=== PATIENT | female | born 1970 | race Caucasian/White ===

== ENCOUNTER → 2022-01-11 09:16 | Outpatient (CLI) | payer BC, SELFPAY ==
[2022-01-11 19:58] LABS: Alanine Aminotransferase 18 IU/L (<35); Albumin 4.1 g/dL (3.5-5.0); Albumin Globulin Ratio 1.4 (1.0-2.8); Alkaline Phosphatase 80 U/L (38-126); Aspartate Aminotransferase 28 IU/L (14-36); BUN Creatinine Ratio 14.9 (6-22); Bilirubin Total 0.5 mg/dL (0.2-1.3); Blood Urea Nitrogen 11 mg/dL (7-17); Calcium 9.2 mg/dL (8.4-10.2); Carbon Dioxide 28 mmol/L (22-32); Chloride 104 mmol/L (98-107); Estimated Glomerular Filt Rate > 60 mL/min (>60); Globulin 2.9 g/dL (1.7-4.1); Glucose 96 mg/dL (70-100); HEMOLYSIS < 15 (0-50); Potassium 4.3 mmol/L (3.4-5.1); Sodium 138 mmol/L (137-145)
[2022-01-11 20:14] LABS: Hematocrit 35.8 % (36-46); Hemoglobin 12.5 g/dL (12.0-16.0); Mean Corpuscular HGB Conc 34.8 % (30-36); Mean Corpuscular Hemoglobin 31.7 PG (26-34); Mean Corpuscular Volume 91.1 fL (80-100); Platelet Count 288 X10^3/uL (150-400); Red Blood Cell Count 3.93 X10^6/uL (4.0-5.2); Red Cell Distribution Width 13.1 % (11.6-14.8); White Blood Cell Count 4.8 X10^3/uL (4.5-11.0)
[2022-01-11 20:27] LABS: Add Manual Diff / Slide Review YES
[2022-01-11 21:25] LABS: Neutrophils Absolute Manual 2352 /uL (3000-5900); Total Cells Counted 100
[2022-01-11 21:26] LABS: RBC Morphology Normal Morphology; Reactive Lymphocytes 1+
== END ==
PROVIDERS: PCP Physician Assistant; Visit Provider Physician Assistant
DX: D64.9 Anemia, unspecified (principal); N92.0 Excessive and frequent menstruation with regular cycle; R10.2 Pelvic and perineal pain
CPT/HCPCS: 80053; 85007; 85025

== ENCOUNTER 2022-01-16 13:59 | Emergency (ER) | payer BC, SELFPAY ==
[2022-01-16 14:24] VITALS: BP 165/96; PULSE 89; RESP 16; TEMP 37; O2SAT 98; BMI 33.0
[2022-01-16 17:24] LABS: Add Manual Diff / Slide Review NO; Basophils Absolute Auto 0 /uL (0-100); Basophils Percent Auto 0.4 % (0-2); Eosinophils Absolute Auto 100 /uL (0-450); Eosinophils Percent Auto 1.3 % (2-4); Hematocrit 32.7 % (36-46); Hemoglobin 11.4 g/dL (12.0-16.0); Lymphocytes Absolute Auto 2000 /uL (1100-4500); Mean Corpuscular HGB Conc 34.9 % (30-36); Mean Corpuscular Hemoglobin 31.9 PG (26-34); Mean Corpuscular Volume 91.4 fL (80-100); Monocytes Absolute Auto 800 /uL (0-900); Monocytes Percent Auto 8.2 % (3-14); Neutrophils Absolute Auto 6900 /uL (1500-7000); Neutrophils Percent Auto 70.1 % (50-75); Platelet Count 284 X10^3/uL (150-400); Red Blood Cell Count 3.58 X10^6/uL (4.0-5.2); Red Cell Distribution Width 13.1 % (11.6-14.8); White Blood Cell Count 9.8 X10^3/uL (4.5-11.0)
[2022-01-16 18:02] LABS: BUN Creatinine Ratio 15.5 (6-22); Blood Urea Nitrogen 11 mg/dL (7-17); Calcium 8.6 mg/dL (8.4-10.2); Carbon Dioxide 26 mmol/L (22-32); Chloride 106 mmol/L (98-107); Estimated Glomerular Filt Rate > 60 mL/min (>60); Glucose 94 mg/dL (70-100); HEMOLYSIS < 15 (0-50); Potassium 3.8 mmol/L (3.4-5.1); Sodium 140 mmol/L (137-145)
--- NOTE | 2022-01-16 18:15 | DI.US.S_ITS ---
PROCEDURE: US PELVIC COMPLETE INDICATIONS: vaginal bleeding. TECHNIQUE: Real-time scanning was performed of the pelvic organs, with image documentation. Additional endovaginal scanning was necessary due to incomplete visualization of the adnexal and endometrial structures by transabdominal scanning. COMPARISON: None. FINDINGS: The uterus measures 5.7 x 5.8 x 10.5 cm. No uterine mass. Endometrium measures 2.5 cm in double air thickness. Both ovaries normal in size and appearance. Anechoic cyst in the left ovary measuring 1.6 x 1.4 x 2.1 cm. No free pelvic fluid. IMPRESSION: Thickened appearance of the endometrium is consistent with menorrhagia. No uterine mass or other acute abnormality identified. We strive to produce accurate, complete, and clear reports of imaging services. To assist us in improving patient care, this report was composed using standard report templates and voice recognition software. Therefore, it may contain abnormal punctuation, insertions and/or omissions. Occasional wrong-word or sound-alike substitutions may occur. Though we review the report and make efforts to correct it, we do recommend that the report be read carefully in proper context to recognize any text inaccuracies. Dictated by: Edi Delatorre M.D. on 01/16/2022 at 20:08 Approved by: Edi Delatorre M.D. on 01/16/2022 at 20:09
--- NOTE | 2022-01-16 20:39 | ED.FEMALEGU ---
HPI - Female Genitourinary <Ronaldo Hilliard PA-C - Last Filed: 01/16/22 20:52> General Chief complaint: Vaginal Bleeding Stated complaint: Heavy menstrual bleeding- referred by Desirae Osorio Time Seen by Provider: 01/16/22 18:15 Source: patient Mode of arrival: Ambulatory History of Present Illness HPI Narrative: 51-year-old female with no reported significant past medical history presents to the ED with prolonged vaginal bleeding starting November 2021. Patient states she is perimenopausal, had abnormal vaginal bleeding starting November, when she had a period that lasted for 2 weeks, followed by stoppage for a week, followed by another period or 3 weeks. Since then the patient says that she has been bleeding on and off, describes the bleeding as moderate bleeding. Patient states that starting this morning, she started experiencing significant cramping along with increased bleeding. Patient does not have an established supervisory air intercept controller, however sees her PCP for her routine exams. Patient saw her PCP last week, who recommended ibuprofen to control the bleeding. Patient states that she has had moderate success with ibuprofen for a couple of days, but no success in the last 2 days. Patient denies fever, chills, chest pain, shortness of breath, nausea, vomiting, dysuria, lightheadedness, dizziness, syncope. Patient states she does not have any significant gynecological history. States that her periods were normal and regular up until 2 months ago. Related Data Previous Rx's Medication Instructions Recorded medroxyprogesterone 10 mg tablet 10 mg PO DAILY 10 Days tab 01/16/22 Allergies Allergy/AdvReac Type Severity Reaction Status Date / Time diphenhydramine Allergy Unknown Verified 01/10/22 08:19 Review of Systems <Ronaldo Hilliard PA-C - Last Filed: 01/16/22 20:52> Review of Systems ROS Unobtainable: All systems reviewed & are unremarkable except as noted in HPI and below Constitutional Constitutional: Denies chills, Denies fatigue, Denies fever(s), Denies frequent falls, Denies lethargy and Denies weakness Eyes Eyes: Denies change in vision, Denies eye discharge, Denies irritation and Denies loss of vision ENT Ears, Nose, Mouth, and Throat: Denies change in voice, Denies dizziness, Denies neck pain, Denies sore throat and Denies throat swelling Cardiovascular Cardiovascular: Denies chest pain, Denies irregular heart rhythm, Denies lightheadedness, Denies palpitations, Denies dyspnea, Denies dyspnea on exertion and Denies orthopnea Respiratory Respiratory: Denies cough, Denies dyspnea, Denies dyspnea on exertion and Denies wheezing Gastrointestinal Gastrointestinal: Denies abdominal pain, Denies change in bowel habits, Denies diarrhea, Denies nausea and Denies vomiting Genitourinary Genitourinary: Denies hematuria, Denies flank pain, Denies urinary incontinence and Denies urinary urgency Comments: Pelvic cramping, abnormal and prolonged vaginal bleeding Musculoskeletal Musculoskeletal: Denies back pain, Denies muscle weakness, Denies neck pain, Denies numbness and Denies tingling Integumentary/Breasts Skin/Breast: Denies pruritus, Denies erythema, Denies rash and Denies wounds Neurologic Neurologic: Denies behavioral changes, Denies confusion, Denies dizziness, Denies frequent falls, Denies loss of vision, Denies numbness, Denies tingling and Denies weakness Psychiatric Psychiatric: Denies anxiety, Denies behavioral changes, Denies confusion, Denies depression, Denies homicidal ideation and Denies suicidal ideation Endocrine Endocrine: Denies fatigue, Denies flushing and Denies palpitations Hematologic/Lymphatic Hematologic/Lymphatic: Denies easy bruising Allergic/Immunologic Allergic/Immunologic: Denies urticaria, Denies throat swelling and Denies wheezing Patient History <Ronaldo Hilliard PA-C - Last Filed: 01/16/22 20:52> Medical History Encounter for general adult medical examination without abnormal findings Encounter for gynecological examination (general) (routine) without abnormal findings Encounter for screening for malignant neoplasm of cervix Encounter for screening mammogram for malignant neoplasm of breast Family History Other Family history of diseases of the skin and subcutaneous tissue alcohol intake frequency: a few times a month Substance Use Type: does not use Exam <Ronaldo Hilliard PA-C - Last Filed: 01/16/22 20:52> Narrative Exam Narrative: Const General:?cooperative, healthy appearing and comfortable HENCO Head:?normal to inspection Ears:?hearing grossly normal bilaterally Nose:?external nose normal Face and sinus:?normal facial exam and sinuses nontender Mouth:?oral mucosae normal Throat:?posterior oropharynx normal Eyes General:?appearance normal, both eyes and all related structures Neck Neck:?normal visual inspection and no lymphadenopathy noted Resp Effort & Inspection:?normal respiratory effort Auscultation:?clear to auscultation bilaterally Cardio Rate:?regular rate Rhythm:?regular rhythm GI Abdomen is soft, nontender, nondistended. Neuro General:?patient alert, patient awake and patient oriented x3 Initial Vital Signs Initial Vital Signs: Vital Signs Temperature 98.6 F 01/16/22 14:24 Pulse Rate 89 01/16/22 14:24 Respiratory Rate 16 01/16/22 14:24 Blood Pressure 165/96 H 01/16/22 14:24 Pulse Oximetry 98 01/16/22 14:24 <Vaibhav Andino DO - Last Filed: 01/17/22 00:23> Initial Vital Signs Initial Vital Signs: Vital Signs Temperature 98.6 F 01/16/22 14:24 Pulse Rate 89 01/16/22 14:24 Respiratory Rate 16 01/16/22 14:24 Blood Pressure 165/96 H 01/16/22 14:24 Pulse Oximetry 98 01/16/22 14:24 Course <Ronaldo Hilliard PA-C - Last Filed: 01/16/22 20:52> Orders Ordered: ED Orders 01/16/22 17:16 Basic Metabolic Panel Stat Complete Blood Count AUTO DIFF Stat 01/16/22 18:15 US pelvic complete Stat Vital Signs Vital signs: Vital Signs - 8 hr 01/16/22 20:49 Pulse Rate 85 Respiratory Rate 16 Blood Pressure 125/76 Pulse Oximetry 97 <DO Mathieu Murcia Last Filed: 01/17/22 00:23> Orders Ordered: ED Orders 01/16/22 17:16 Basic Metabolic Panel Stat Complete Blood Count AUTO DIFF Stat 01/16/22 18:15 US pelvic complete Stat Vital Signs Vital signs: Vital Signs - 8 hr 01/16/22 20:49 Pulse Rate 85 Respiratory Rate 16 Blood Pressure 125/76 Pulse Oximetry 97 MDM - Female Genitourinary <FRANKY Dia Last Filed: 01/16/22 20:52> Lab Data Lab results narrative: Labs within normal limits. H&H stable. Result diagrams: 01/16/22 17:16 01/16/22 17:16 Labs: Lab Results 01/16/22 01/16/22 Range/Units 17:16 17:16 WBC 9.8 (4.5-11.0) X10^3/uL RBC 3.58 L (4.0-5.2) X10^6/uL Hgb 11.4 L (12.0-16.0) g/dL Hct 32.7 L (36-46) % MCV 91.4 (80-100) fL MCH 31.9 (26-34) PG MCHC 34.9 (30-36) % RDW 13.1 (11.6-14.8) % Plt Count 284 (150-400) X10^3/uL Neut % (Auto) 70.1 (50-75) % Lymph % (Auto) 20.0 L (25-40) % [place] % (Auto) 8.2 (3-14) % Eos % (Auto) 1.3 L (2-4) % Baso % (Auto) 0.4 (0-2) % Neut # (Auto) 6900 (3173-7135) /uL Lymph # (Auto) 2000 (0347-8914) /uL [place] # (Auto) 800 (0-900) /uL Eos # (Auto) 100 (0-450) /uL Baso # (Auto) 0 (0-100) /uL Sodium 140 (137-145) mmol/L Potassium 3.8 (3.4-5.1) mmol/L Chloride 106 (98-107) mmol/L Carbon Dioxide 26 (22-32) mmol/L BUN 11 (7-17) mg/dL Creatinine 0.71 (0.52-1.04) mg/dL Estimated GFR > 60 (>60) mL/min BUN/Creatinine Ratio 15.5 (6-22) Glucose 94 (70-100) mg/dL Calcium 8.6 (8.4-10.2) mg/dL Point of Care Testing Test Results Negative Urine Dip Bedside Urine Glucose Negative Bedside Urine Bilirubin - Negative Bedside Urine Ketone - Negative Urine Specific [place] 1.015 Bedside Urine Occult Blood +++ Bedside Urine pH 5.5 Bedside Urine Protein - Negative Bedside Urine Urobilinogen - Negative Bedside Urine Nitrite - Negative Bedside Urine Leukocytes - Negative Esterase Imaging Data US - DIRECTOR TREASURER: Radiologist's Impression: PROCEDURE:? US PELVIC COMPLETE ? INDICATIONS:? vaginal bleeding. ? TECHNIQUE:? Real-time scanning was performed of the pelvic organs, with image documentation.? Additional endovaginal scanning was necessary due to incomplete visualization of the adnexal and endometrial structures by transabdominal scanning.? ? COMPARISON:? None. ? FINDINGS:? ?? The uterus measures 5.7 x 5.8 x 10.5 cm.? No uterine mass.? Endometrium measures 2.5 cm in double air thickness. ? Both ovaries normal in size and appearance.? Anechoic cyst in the left ovary measuring 1.6 x 1.4 x 2.1 cm. ? No free pelvic fluid.? ? ? IMPRESSION:? Thickened appearance of the endometrium is consistent with menorrhagia.? No uterine mass or other acute abnormality identified. ? We strive to produce accurate, complete, and clear reports of imaging services. To assist us in improving patient care, this report was composed using standard report templates and voice recognition software. Therefore, it may contain abnormal punctuation, insertions and/or omissions. Occasional wrong-word or sound-alike substitutions may occur. Though we review the report and make efforts to correct it, we do recommend that the report be read carefully in proper context to recognize any text inaccuracies. ? ? Dictated by: Edi Delatorre M.D. on 01/16/2022 at 20:08 ? ? Approved by: Edi Delatorre M.D. on 01/16/2022 at 20:09 ? MDM Narrative Medical decision making narrative: 51-year-old female with no reported significant past medical history presents to the ED with prolonged vaginal bleeding starting November 2021. Concern for fibroids versus polyps versus malignancy versus hyperplasia versus perimenopausal DUB versus anemia vs vs miscarriage. Will obtain labs, Upreg, vaginal ultrasound. H&H stable, U preg negative. Vaginal ultrasound shows endometrial hyperplasia consistent with menorrhagia, anechoic ovarian cyst. We will start patient on medroxyprogesterone to contain the bleeding. Patient agrees to follow-up with supervisory air intercept controller Dr. Guerra as soon as possible. ED return precautions discussed with patient. Patient verbalized understanding. <Vaibhav Andino, - Last Filed: 01/17/22 00:23> Lab Data Labs: Lab Results 01/16/22 01/16/22 Range/Units 17:16 17:16 WBC 9.8 (4.5-11.0) X10^3/uL RBC 3.58 L (4.0-5.2) X10^6/uL Hgb 11.4 L (12.0-16.0) g/dL Hct 32.7 L (36-46) % MCV 91.4 (80-100) fL MCH 31.9 (26-34) PG MCHC 34.9 (30-36) % RDW 13.1 (11.6-14.8) % Plt Count 284 (150-400) X10^3/uL Neut % (Auto) 70.1 (50-75) % Lymph % (Auto) 20.0 L (25-40) % [place] % (Auto) 8.2 (3-14) % Eos % (Auto) 1.3 L (2-4) % Baso % (Auto) 0.4 (0-2) % Neut # (Auto) 6900 (9908-8358) /uL Lymph # (Auto) 2000 (5861-6546) /uL [place] # (Auto) 800 (0-900) /uL Eos # (Auto) 100 (0-450) /uL Baso # (Auto) 0 (0-100) /uL Sodium 140 (137-145) mmol/L Potassium 3.8 (3.4-5.1) mmol/L Chloride 106 (98-107) mmol/L Carbon Dioxide 26 (22-32) mmol/L BUN 11 (7-17) mg/dL Creatinine 0.71 (0.52-1.04) mg/dL Estimated GFR > 60 (>60) mL/min BUN/Creatinine Ratio 15.5 (6-22) Glucose 94 (70-100) mg/dL Calcium 8.6 (8.4-10.2) mg/dL Point of Care Testing Test Results Negative Urine Dip Bedside Urine Glucose Negative Bedside Urine Bilirubin - Negative Bedside Urine Ketone - Negative Urine Specific [place] 1.015 Bedside Urine Occult Blood +++ Bedside Urine pH 5.5 Bedside Urine Protein - Negative Bedside Urine Urobilinogen - Negative Bedside Urine Nitrite - Negative Bedside Urine Leukocytes - Negative Esterase Discharge Plan Departure Patient Disposition: Home Clinical Impression: Episode of heavy vaginal bleeding Instructions: DI for Menorrhagia Activity Restrictions/Additional Instructions: You were evaluated in the ED today for prolonged vaginal bleeding. Your labs were normal, you are not anemic. Your ultrasound showed a thickened endometrium and an ovarian cyst. The thickened endometrium is consistent with the fact that you had prolonged bleeding. Your symptoms could be perimenopausal, please follow-up with a supervisory air intercept controller for further workup and treatment. You have been prescribed medroxyprogesterone for 10 days to stop the bleeding. Return to the ED if you have worsening bleeding, lightheadedness, shortness of breath, chest pain. Prescriptions: New medroxyprogesterone 10 mg tablet 10 mg PO DAILY 10 Days 0RF Referrals: Desirae Osorio PA-C [Primary Care Provider] - Visit Report Forms: Patient Portal/API <Vaibhav Andino DO - Last Filed: 01/17/22 00:23> Cosign ED Attending Cosmarielature Attestation: I was immediately available in the department for consultation. This documentation has been reviewed and I agree with assessment and plan. Supervised by Vaibhav Andino DO
[2022-01-16 20:49] VITALS: BP 125/76; PULSE 85; RESP 16; O2SAT 97
== END 2022-01-16 20:50 | disposition home or self-care (01) ==
PROVIDERS: Emergency Medicine; Emergency Provider Student in an Organized Health Care Education/Training Program; PCP Physician Assistant
DX: N93.9 Abnormal uterine and vaginal bleeding, unspecified (principal)
CPT/HCPCS: 36415; 76830; 76856; 80048; 81003; 81025; 85025; 99282; 99283

== ENCOUNTER → 2022-02-02 16:09 | Outpatient (CLI) | payer BC, SELFPAY ==
[2022-02-02 16:48] LABS: COVID19 -Nasal RAPID Negative (Negative)
== END ==
PROVIDERS: PCP Physician Assistant; Visit Provider Specialist
DX: Z20.822 Contact with and (suspected) exposure to COVID-19 (principal); Z01.812 Encounter for preprocedural laboratory examination
CPT/HCPCS: 87635

== ENCOUNTER 2022-02-03 09:19 | Day surgery (SDC) | payer BC, SELFPAY ==
[2022-01-30 15:11] VITALS: BMI 33.0
--- NOTE | 2022-02-03 | PATH_ITS ---
[facility] Accession Number: [id number] . 01 Material submitted: . endometrium - ENDOMETRIAL CURETTING . 01 Diagnosis: Endometrial Curetting: Disordered proliferative endometrium; negative for glandular hyperplasia, cytologic atypia, or malignancy. Endometrial fragments are associated with myometrium; negative for atypia or malignancy. Background of shedding endometrium. MRV 02/07/2022 0858 Local . 01 Electronically signed: . Kayley Whyte MD, Pathologist NPI- [id number] . 01 Gross description: . ENDOMETRIAL CURETTING: Received in formalin are multiple fragment(s) of márquez, soft tissue measuring 2.5 x 2.0 x 1.2 cm in aggregate submitted entirely in 3 cassette(s) /QBJ 02/05/2022 2334 Local . 01 Pathologist provided ICD-10: N92.0, R93.89 . 01 CPT . 776611 Specimen Comment: A courtesy copy of this report has been sent to [phone] Performed at: 01 [facility] [address] [place] [address], [place], [place] [id number] MD Juan F Hurd MD Phone: [phone]
[2022-02-03 09:37] VITALS: BP 121/73; PULSE 68; RESP 15; TEMP 36.8; O2SAT 99; BMI 33.0
[2022-02-03] MEDS: LACTATED RINGERS 1,000 ML 100 ML IV (09:50)
--- NOTE | 2022-02-03 10:59 | PM.PREOP ---
Pre-operative Note COVID-19 COVID-19 status: Negative Result date/Date tested (Pos, Neg/Pending): 02/02/22 Criteria for continued procedure: Expected advancement of disease process Interval Note History & Physical reviewed/Exam performed by Physician: Yes Changes to H&P: No
--- NOTE | 2022-02-03 11:20 | SUR.OPER ---
Lithotomy on padded OR bed, head on pillow, arms secured on padded arm boards at <90 degrees abduction. Legs secured in padded yellow fins stirrups.
[2022-02-03 11:41] VITALS: BP 132/82; PULSE 60; RESP 11; TEMP 36.3; O2SAT 96
--- NOTE | 2022-02-03 11:41 | PM.OP.1 ---
Operative Date/Time/Diagnoses Date of procedure: 02/03/22 Time of procedure: 11:41 Pre-op diagnosis: Menorrhagia Post-op diagnosis: same Procedure & Clinicians Procedure: Hysteroscopy she D&C with resection of endometrial polyps Same procedure as scheduled: Yes Indications: Menorrhagia with thickened endometrium on ultrasound Surgeon: Jany Genao Click Yes if Unassisted: Yes Anesthesia Type: General Operative Notes Findings: Normal exam under anesthesia. Multiple endometrial polyps with no cervical polyps. No obvious evidence of cancer. Closure Type: not applicable Specimen(s): other (Endometrial curettage and polyps) Estimated Blood Loss (mL): 20 Blood products transfused: none Procedure in detail: The patient was brought to the operating room where she underwent general anesthesia. She was placed in low stirrups She was prepped and draped in usual sterile fashion with pulsatile stockings in place and functional, warming in place. No antibiotics were indicated. Her bladder was drained with in and out catheter. A single-tooth tenaculum was placed on the anterior lip of the cervix and the uterus dilated to #8 Hegar dilator. The hysteroscope was placed into the uterus with a sorbitol solution running and under constant suction. The resecting loop set at 80 W of cutting was used to resect the polyps down to the level of the endometrium. A endometrial curettage was performed. The polyps and the endometrial curettage was sent to pathology. The patient went to recovery room in good condition counts of instruments and sponges were correct. Estimated blood loss less than 5 mL. The sorbitol solution I=O approximately 4000 mL. Complications: none Post-operative Condition: stable Disposition: same day surgery Plan for aftercare: Home when awake and stable. Treatment and follow-up based on biopsy results.
[2022-02-03 11:46] VITALS: BP 136/86; PULSE 64; RESP 12; TEMP 36.3; O2SAT 96
[2022-02-03] MEDS: OXYCODONE/ACETAMINOPHEN 5/325 TABLET 1 TAB PO (11:49)
[2022-02-03 11:51] VITALS: BP 138/88; PULSE 60; RESP 12; TEMP 35.9; O2SAT 97
[2022-02-03 11:58] VITALS: BP 141/81; PULSE 62; RESP 12; TEMP 36.1; O2SAT 98
--- NOTE | 2022-02-03 12:20 | SUR.PHASEII ---
Discharge instructions reviewed with pt and she verbalized understanding.
== END 2022-02-03 12:21 | disposition home or self-care (01) ==
PROVIDERS: PCP Physician Assistant; Referring Provider Specialist; Visit Provider Specialist
PROC: 0UDB8ZZ Extraction of Endometrium, Via Natural or Artificial Opening Endoscopic (ICD-10-PCS; CPT 58558; principal; 2022-02-03 11:15)
DX: R93.89 Abnormal findings on diagnostic imaging of other specified body structures; N92.1 Excessive and frequent menstruation with irregular cycle
CPT/HCPCS: 58558; J2250; J3010

== ENCOUNTER → 2022-03-22 13:02 | Outpatient (CLI) | payer BC, SELFPAY ==
[2022-03-22 19:46] LABS: Add Manual Diff / Slide Review NO; Basophils Absolute Auto 0 /uL (0-100); Basophils Percent Auto 0.9 % (0-2); Eosinophils Absolute Auto 100 /uL (0-450); Hematocrit 33.4 % (36-46); Hemoglobin 11.3 g/dL (12.0-16.0); Lymphocytes Absolute Auto 1700 /uL (1100-4500); Lymphocytes Percent Auto 32.9 % (25-40); Mean Corpuscular HGB Conc 33.9 % (30-36); Mean Corpuscular Hemoglobin 30.5 PG (26-34); Mean Corpuscular Volume 90.1 fL (80-100); Monocytes Absolute Auto 400 /uL (0-900); Monocytes Percent Auto 7.9 % (3-14); Neutrophils Absolute Auto 3000 /uL (1500-7000); Neutrophils Percent Auto 56.3 % (50-75); Platelet Count 328 X10^3/uL (150-400); Red Blood Cell Count 3.71 X10^6/uL (4.0-5.2); Red Cell Distribution Width 12.4 % (11.6-14.8); White Blood Cell Count 5.3 X10^3/uL (4.5-11.0)
== END ==
PROVIDERS: PCP Physician Assistant; Visit Provider Physician Assistant
DX: D64.9 Anemia, unspecified (principal)
CPT/HCPCS: 85025

== ENCOUNTER 2022-11-11 18:22 | Emergency (ER) | payer BC, SELFPAY ==
[2022-11-11 18:29] VITALS: BP 160/83; PULSE 72; RESP 16; TEMP 36.6; O2SAT 98; BMI 33.9
--- NOTE | 2022-11-11 18:49 | ED_ITS ---
HPI - Animal Bite <ABHILASH Amador - Last Filed: 11/11/22 18:56> General Chief Complaint: Animal Bite Stated Complaint: rt hand injury cat bite Time Seen by Provider: 11/11/22 18:28 Source: patient Mode of arrival: Ambulatory History of Present Illness HPI narrative: 52-year-old female, never smoker, presents to the emergency department with a animal bite to her right hand. Patient's fully immunized cat got out of the house and underneath the deck. When patient went to retrieve the cat, the cat bit her on the right hand thenar region. Patient cleaned the area with copious amounts of soap and water at home before coming into the emergency department. [place]. Patient is unsure of her last tetanus shot. Related Data Previous Rx's Medication Instructions Recorded codeine 10 mg-guaifenesin 100 mg/5 See Rx Instructions PO Q4-6H PRN 08/15/22 mL oral liquid cough #120 mL albuterol sulfate 90 mcg/actuation See Rx Instructions inhalation 10/16/22 aerosol inhaler (Ventolin HFA) Q4-6H PRN shortness of breath or wheezing #8.5 grams amoxicillin 875 mg-potassium 1 tab PO BID Cat bite 3 days #6 11/11/22 clavulanate 125 mg tablet tabs Allergies Allergy/AdvReac Type Severity Reaction Status Date / Time diphenhydramine Allergy Severe Migraine Verified 10/18/22 11:20 Review of Systems <ABHILASH Amador - Last Filed: 11/11/22 18:56> Review of Systems Narrative: Narrative: See HPI. GENERAL: Denies chills, fatigue, fever, sweats. RESPIRATORY: Denies dyspnea, cough, wheezing, sputum. CARDIOVASCULAR: Denies chest pain, palpitations, edema. GASTROINTESTINAL: Denies nausea, vomiting, abdominal pain, diarrhea, constipation. MSK: Denies weakness, joint pain, or bony pain. SKIN: Denies rash, skin lesions, or pruritis. Endorses 3 puncture wounds to right hand from a cat bite. NEUROLOGIC: Denies weakness, dizziness, headache, numbness, confusion. Patient History <ABHILASH Amador Last Filed: 11/11/22 18:56> Medical History Allergies (~1982) Chicken pox (~1977) Encounter for general adult medical examination without abnormal findings Encounter for gynecological examination (general) (routine) without abnormal findings Encounter for screening for malignant neoplasm of cervix Encounter for screening mammogram for malignant neoplasm of breast Surgical History Anesthesia History of tonsillectomy and adenoidectomy (~1992) [place] teeth removed (~1992) Family History Mother Skin cancer Grandfather Cancer Grandmother Skin cancer Grandfather Stroke Skin cancer Grandmother History of heart disease Other Family history of diseases of the skin and subcutaneous tissue Social History household members: significant other Smoking Status: Never smoker alcohol intake: current Smoking Status: Never smoker alcohol intake frequency: a few times a month Substance Use Type: does not use Exam <ABHILASH Amador - Last Filed: 11/11/22 18:56> Narrative Exam Narrative: Exam Narrative: GENERAL: This is a well-nourished, well-developed patient, in no acute distress. HEAD: Atraumatic. Normocephalic. EYES: No scleral icterus, injection or drainage. ENT: Nose without bleeding, purulent drainage. Airway patent. NECK: Trachea midline. No JVD. RESPIRATORY: Normal respiratory rate and effort. MSK: Moves all extremities. Normal range of motion, no clubbing or edema. Neurovascularly intact. NEURO: A&O x 3. SKIN: Warm, dry, no rashes or lesions noted. Three puncture wounds on thenar region of right palm from a cat bite. Site is mildly swollen with no signs of current infection (redness, warmth, discharge, red streaking). Initial Vital Signs Initial Vital Signs: Vital Signs Temperature 97.9 F 11/11/22 18:29 Pulse Rate 72 11/11/22 18:29 Respiratory Rate 16 11/11/22 18:29 Blood Pressure 160/83 H 11/11/22 18:29 Pulse Oximetry 98 11/11/22 18:29 Oxygen Delivery Method Room Air 11/11/22 18:29 Reviewed <Vaibhav Andino DO - Last Filed: 11/12/22 04:48> Initial Vital Signs Initial Vital Signs: Vital Signs Temperature 97.9 F 11/11/22 18:29 Pulse Rate 72 11/11/22 18:29 Respiratory Rate 16 11/11/22 18:29 Blood Pressure 160/83 H 11/11/22 18:29 Pulse Oximetry 98 11/11/22 18:29 Oxygen Delivery Method Room Air 11/11/22 18:29 Course <ABHILASH Amador - Last Filed: 11/11/22 18:56> Orders Ordered: Discontinued Medications Amoxicillin/Clavulanate Potassium (Amoxicillin/Clav 875/125 Mg) 1 tab PO NOW ONE Stop: 11/11/22 18:41 Last Admin: 11/11/22 18:51 Dose: 1 tab Documented By: CHAO Diphtheria/Tetanus/Acell Pertussis (Tet,Diph,Pertuss(Acell),Vac/Pf 0.5 Ml Syringe) 0.5 ml IM .ONCE ONE Stop: 11/11/22 18:39 Last Admin: 11/11/22 18:50 Dose: 0.5 ml Documented By: CHAO Vital Signs Vital signs: Vital Signs - 8 hr 11/11/22 18:29 Temperature 97.9 F Pulse Rate 72 Respiratory Rate 16 Blood Pressure 160/83 H Pulse Oximetry 98 Oxygen Delivery Method Room Air <Vaibhav Andino DO - Last Filed: 11/12/22 04:48> Orders Ordered: Discontinued Medications Amoxicillin/Clavulanate Potassium (Amoxicillin/Clav 875/125 Mg) 1 tab PO NOW ONE Stop: 11/11/22 18:41 Last Admin: 11/11/22 18:51 Dose: 1 tab Documented By: CHAO Diphtheria/Tetanus/Acell Pertussis (Tet,Diph,Pertuss(Acell),Vac/Pf 0.5 Ml Syringe) 0.5 ml IM .ONCE ONE Stop: 11/11/22 18:39 Last Admin: 11/11/22 18:50 Dose: 0.5 ml Documented By: CHAO Vital Signs Vital signs: Vital Signs - 8 hr 11/11/22 18:29 Temperature 97.9 F Pulse Rate 72 Respiratory Rate 16 Blood Pressure 160/83 H Pulse Oximetry 98 Oxygen Delivery Method Room Air MDM - Animal Bite <ABHILASH Amador - Last Filed: 11/11/22 18:56> Differential Diagnosis Differential diagnosis: Likely bite by animal and cat bite MDM Narrative Medical decision making narrative: 52-year-old female presents to the emergency department with a cat bite to her right palm. Site was cleansed at home and in the emergency department. Tetanus status was updated. Will treat with Augmentin for 3 days. First dose of antibiotics given in the ED and hard copy prescription for the remaining pills. Discussed plan of care, proper wound care and return precautions with patient and partner, who verbalized understanding were agreeable with course of action. Discharge Plan Departure Patient Disposition: Home Clinical Impression: Cat bite Instructions: DI for Animal Bites, DI for Cat Bite Activity Restrictions/Additional Instructions: *You have been diagnosed with a cat bite to right hand. We have cleansed your wound and updated your tetanus status. We have given you your 1st dose of antibiotic and will have you fill the prescription for the remaining amounts. Please use cool compresses and elevation to keep the swelling down. Please watch for signs of worsening infection that include increased redness, swelling, red streaking or yellow discharge. If this occurs, please follow-up with your family doctor or return to the emergency department. *What to do: *Please continue to take your regular medications as directed. [ ] New medication prescriptions sent to your pharmacy: [ ] [x ] New medication written as a paper prescription [ ] No new medications given *Please follow up with your primary care provider in 2-3 days, call for an appointment. Let them know you were seen in the Emergency Department and that we ask that you be seen in follow up. We will electronically transmit a record of today's note if your PCP is in our system *If you do not have a primary care provider please contact the [facility] Resource line at [phone]. They will ask some questions about your medical history and help get you set up with a doctor in the community. ? Return to ER if you should have any new, worsening or concerning symptoms, such as worsening pain, severe headache, confusion, chest pain, difficulty breathing, fever greater than 101 F, shaking chills, persistent vomiting to the point that you cannot drink fluids, or other new or worsening symptoms. Prescriptions: New amoxicillin-pot clavulanate 875-125 mg tablet 1 tab PO BID 3 Days Qty: 6 0RF No Action albuterol sulfate [Ventolin HFA] 90 mcg/actuation HFA aerosol inhaler See Rx Instructions inhalation Q4-6H PRN (Reason: shortness of breath or wheezing) Qty: 8.5 1RF Rx Instructions: one to two puffs inhaled every 4-6 hours PRN; codeine-guaifenesin 10-100 mg/5 mL liquid See Rx Instructions PO Q4-6H PRN (Reason: cough) Qty: 120 0RF Rx Instructions: 5mL to 10mL orally every 4-6 hours PRN; Referrals: Desirae Osorio PA-C [Primary Care Provider] - Stand Alone Forms: Patient Portal/API <Vaibhav Andino DO - Last Filed: 11/12/22 04:48> Cosign ED Attending [place] Attestation: I was immediately available in the department for consultation. Documentation long s been reviewed. I agree with assessment and plan.
[2022-11-11] MEDS: TET,DIPH,PERTUSS(ACELL),VAC/PF 0.5 ML SYRINGE IM (18:50)
[2022-11-11] MEDS: AMOXICILLIN/CLAV 875/125 MG 1 TAB PO (18:51)
== END 2022-11-11 19:12 | disposition home or self-care (01) ==
PROVIDERS: Emergency Provider Registered Nurse; PCP Physician Assistant
DX: S61.451A Open bite of right hand, initial encounter (principal); W55.01XA Bitten by cat, initial encounter; Z23 Encounter for immunization
CPT/HCPCS: 90471; 99283; 90715

== ENCOUNTER → 2022-11-27 08:53 | Outpatient (CLI) | payer BC, SELFPAY ==
[2022-11-27 19:34] LABS: Add Manual Diff / Slide Review NO; Basophils Absolute Auto 0 /uL (0-100); Basophils Percent Auto 0.5 % (0-2); Eosinophils Absolute Auto 200 /uL (0-450); Eosinophils Percent Auto 2.2 % (2-4); Hematocrit 34.9 % (36-46); Hemoglobin 11.8 g/dL (12.0-16.0); Lymphocytes Absolute Auto 1600 /uL (1100-4500); Lymphocytes Percent Auto 18.6 % (25-40); Mean Corpuscular HGB Conc 33.8 % (30-36); Mean Corpuscular Hemoglobin 29.9 PG (26-34); Mean Corpuscular Volume 88.6 fL (80-100); Monocytes Absolute Auto 600 /uL (0-900); Monocytes Percent Auto 7.2 % (3-14); Neutrophils Absolute Auto 6300 /uL (1500-7000); Neutrophils Percent Auto 71.5 % (50-75); Platelet Count 361 X10^3/uL (150-400); Red Blood Cell Count 3.94 X10^6/uL (4.0-5.2); Red Cell Distribution Width 13.3 % (11.6-14.8); White Blood Cell Count 8.8 X10^3/uL (4.5-11.0)
[2022-11-27 19:43] LABS: HEMOLYSIS < 15 (0-50); Iron 61 ug/dL (37-170)
[2022-11-27 19:46] LABS: Alanine Aminotransferase 19 IU/L (<35); Albumin 3.6 g/dL (3.5-5.0); Albumin Globulin Ratio 1.3 (1.0-2.8); Alkaline Phosphatase 98 U/L (38-126); Aspartate Aminotransferase 27 IU/L (14-36); BUN Creatinine Ratio 14.1 (6-22); Bilirubin Total 0.5 mg/dL (0.2-1.3); Blood Urea Nitrogen 10 mg/dL (7-17); Calcium 8.6 mg/dL (8.4-10.2); Carbon Dioxide 28 mmol/L (22-32); Chloride 106 mmol/L (98-107); Cholesterol 155 mg/dL (140-199); Estimated Glomerular Filt Rate > 60 mL/min (>60); Globulin 2.8 g/dL (1.7-4.1); Glucose 86 mg/dL (70-100); HDL Cholesterol 42 mg/dL (40-60); HEMOLYSIS < 15 (0-50); LDL Cholesterol Calculated 100 mg/dL (<100); Potassium 3.9 mmol/L (3.4-5.1); Sodium 138 mmol/L (137-145); Total Protein 6.4 g/dL (6.3-8.2); Triglycerides 63 mg/dL (35-150)
[2022-11-27 19:53] LABS: Percent Iron Saturation 14 % (15-50); Total Iron Binding Capacity 421 ug/dL (265-497); Transferrin 305 mg/dL (206-381)
[2022-11-27 20:17] LABS: Ferritin 7 ng/mL (11-264)
[2022-11-27 20:31] LABS: Vitamin B12 838 pg/mL (239-931)
== END ==
PROVIDERS: PCP Physician Assistant; Visit Provider Physician Assistant
DX: D64.9 Anemia, unspecified (principal); Z13.6 Encounter for screening for cardiovascular disorders; R60.0 Localized edema
CPT/HCPCS: 80053; 80061; 82607; 82728; 83540; 83550; 85025

== ENCOUNTER → 2024-05-22 16:05 | Outpatient (CLI) | payer BC, SELFPAY ==
--- NOTE | 2024-05-22 16:06 | DI.MG.S_ITS ---
BILATERAL DIGITAL SCREENING MAMMOGRAM 3D/2D WITH CAD: 05/22/2024 CLINICAL: Routine screening. Family history of breast cancer. No prior exams were available for comparison. There are scattered areas of fibroglandular density (category b / 25%-50% glandular tissue). Current study was also evaluated with a Computer Aided Detection (CAD) system. No significant masses, calcifications, or other findings are seen in either breast. IMPRESSION: NEGATIVE There is no mammographic evidence of malignancy. A 1 year screening mammogram is recommended. Based on the Tyrer Cuzick model (a risk assessment model) the patient's lifetime risk is 15.6% and her 10 year risk is 4.4%. According to the ACR, ACS, and NCCN guidelines, an annual breast MRI exam along with mammogram is recommended if the patient's lifetime risk is 20% or greater. This exam was interpreted at Station ID: [id number]. NOTE: For mammograms, a report in lay terms will be sent to the patient. Approximately 15% of breast malignancies will not be visualized mammographically. In the management of a palpable breast mass, a negative mammogram must not discourage biopsy of a clinically suspicious lesion. Electronically Signed By: Toby scott/beto:05/23/2024 09:19:06 letter sent: Normal Exam ACR BI-RADS Category 1: Negative
== END ==
PROVIDERS: PCP Physician Assistant; Referring Provider Physician Assistant; Visit Provider Physician Assistant
DX: Z12.31 Encounter for screening mammogram for malignant neoplasm of breast (principal); Z80.3 Family history of malignant neoplasm of breast
CPT/HCPCS: 77063; 77067

== ENCOUNTER → 2024-05-29 12:58 | Outpatient (CLI) | payer BC, SELFPAY ==
[2024-05-29 20:41] LABS: Add Manual Diff / Slide Review NO; Basophils Absolute Auto 0 /uL (0-100); Basophils Percent Auto 0.5 % (0-2); Eosinophils Absolute Auto 100 /uL (0-450); Eosinophils Percent Auto 1.6 % (2-4); Hemoglobin 12.5 g/dL (12.0-16.0); Lymphocytes Absolute Auto 2100 /uL (1100-4500); Lymphocytes Percent Auto 37.3 % (25-40); Mean Corpuscular HGB Conc 33.7 % (30-36); Mean Corpuscular Hemoglobin 31.4 PG (26-34); Mean Corpuscular Volume 93.2 fL (80-100); Monocytes Absolute Auto 400 /uL (0-900); Monocytes Percent Auto 7.1 % (3-14); Neutrophils Absolute Auto 3000 /uL (1500-7000); Neutrophils Percent Auto 53.5 % (50-75); Platelet Count 303 X10^3/uL (150-400); Red Blood Cell Count 3.97 X10^6/uL (4.0-5.2); Red Cell Distribution Width 12.7 % (11.6-14.8); White Blood Cell Count 5.6 X10^3/uL (4.5-11.0)
[2024-05-29 20:48] LABS: Alanine Aminotransferase 21 IU/L (<35); Albumin 4.3 g/dL (3.5-5.0); Albumin Globulin Ratio 1.6 (1.0-2.8); Alkaline Phosphatase 70 U/L (38-126); Aspartate Aminotransferase 31 IU/L (14-36); BUN Creatinine Ratio 15.2 (6-22); Bilirubin Total 0.5 mg/dL (0.2-1.3); Blood Urea Nitrogen 10 mg/dL (7-17); Calcium 9.8 mg/dL (8.4-10.2); Carbon Dioxide 30 mmol/L (22-32); Chloride 99 mmol/L (98-107); Cholesterol 169 mg/dL (140-199); Estimated Glomerular Filt Rate > 60 mL/min (>60); Globulin 2.7 g/dL (1.7-4.1); Glucose 106 mg/dL (70-100); HDL Cholesterol 58 mg/dL (40-60); HEMOLYSIS < 15 (0-50); Hemoglobin A1C% w Est Avg Glu 5.5 % (4.0-6.0); LDL Cholesterol Calculated 98 mg/dL (<100); Sodium 136 mmol/L (137-145); Triglycerides 67 mg/dL (35-150)
[2024-05-29 21:19] LABS: TSH w/ Reflex to FT4 2.17 uIU/mL (0.47-4.68)
== END ==
PROVIDERS: PCP Physician Assistant; Visit Provider Nurse Practitioner Adult Health
DX: Z01.419 Encounter for gynecological examination (general) (routine) without abnormal findings (principal); N95.1 Menopausal and female climacteric states
CPT/HCPCS: 80053; 80061; 82397; 83036; 84443; 85025

== ENCOUNTER → 2024-08-22 15:09 | Outpatient (CLI) | payer BC, SELFPAY ==
--- NOTE | 2024-08-22 15:10 | DI.US.S_ITS ---
PROCEDURE: US PELVIC COMPLETE INDICATIONS: DUB on HRT, assess for uterine fibroids, endometrial thicken TECHNIQUE: Real-time scanning was performed of the pelvic organs, with image documentation. Additional endovaginal scanning was necessary due to incomplete visualization of the adnexal and endometrial structures by transabdominal scanning. COMPARISON: [facility], , US PELVIC COMPLETE, 01/16/2022, 18:58. FINDINGS: Uterus: Uterus is anteverted and normal in size at 4.0 x 5.4 x 7.5 cm. The myometrium is homogeneous. The endometrium measures 5.0 mm combined thickness. There is a small rounded myometrial presumed fibroid measuring 1.1 x 1.0 x 1.0 cm on the left posteriorly in the intramural space. Ovaries: The right ovary measures 1.8 x 1.0 x 3.0 cm, with a calculated ovarian volume of 2.8 cc. The left ovary measures 2.9 x 2.5 x 1.4 cm, with a calculated ovarian volume of 5.3 cc. The ovaries have a normal sonographic appearance. Less than 12 follicles can be seen in each ovary. There is a small irregular cystic area at the left ovary with a solid margin at the left ovary measuring 1.6 x 1.5 x 1.0 cm. Other: No pathologic free abdominal or pelvic fluid. IMPRESSION: Normal appearing uterus and right ovary. Irregular cystic and solid small region at the left ovary which should be followed up by repeat pelvic ultrasound in 6-8 weeks. We strive to produce accurate, complete, and clear reports of imaging services. To assist us in improving patient care, this report was composed using standard report templates and voice recognition software. Therefore, it may contain abnormal punctuation, insertions and/or omissions. Occasional wrong-word or sound-alike substitutions may occur. Though we review the report and make efforts to correct it, we do recommend that the report be read carefully in proper context to recognize any text inaccuracies. Dictated by: Stoney Singh M.D. on 08/23/2024 at 7:22 Approved by: Stoney Singh M.D. on 08/23/2024 at 7:27
== END ==
PROVIDERS: PCP Physician Assistant; Referring Provider Nurse Practitioner Adult Health; Visit Provider Nurse Practitioner Adult Health
DX: N93.8 Other specified abnormal uterine and vaginal bleeding (principal)
CPT/HCPCS: 76830; 76856

== ENCOUNTER → 2024-10-03 13:52 | Outpatient (CLI) | payer BC, SELFPAY ==
--- NOTE | 2024-10-03 13:54 | DI.US.S_ITS ---
PROCEDURE: US PELVIC COMPLETE INDICATIONS: assess left ovarian cyst, uterine fibroid, endo thickening TECHNIQUE: Real-time scanning was performed of the pelvic organs, with image documentation. Additional endovaginal scanning was necessary due to incomplete visualization of the adnexal and endometrial structures by transabdominal scanning. COMPARISON: [facility], , US PELVIC COMPLETE, 08/22/2024, 15:17. FINDINGS: Uterus: Uterus is anteverted and normal in size at 6.3 x 4.8 x 3.6 cm. The myometrium is homogeneous. The endometrium measures 4 mm combined thickness. There is a small left posterior intramural fibroid measuring 1.0 cm in maximum dimension. This is unchanged. Ovaries: The right ovary measures 2.2 x 1.2 x 1.4 cm, with a calculated ovarian volume of 1.9 cc. The left ovary measures 2.3 x 1.3 x 1.3 cm, with a calculated ovarian volume of 2.0 cc. The ovaries have a normal sonographic appearance. Less than 12 follicles can be seen in each ovary. No adnexal masses are seen. The left ovarian cystic structure has decreased in size compared to the previous study, now measuring 1.2 x 1.0 x 0.8 cm. It has a more rounded configuration. No further follow-up is required. Other: No pathologic free abdominal or pelvic fluid. IMPRESSION: Early evidence of resolving small left ovarian cyst. No further follow-up recommended. We strive to produce accurate, complete, and clear reports of imaging services. To assist us in improving patient care, this report was composed using standard report templates and voice recognition software. Therefore, it may contain abnormal punctuation, insertions and/or omissions. Occasional wrong-word or sound-alike substitutions may occur. Though we review the report and make efforts to correct it, we do recommend that the report be read carefully in proper context to recognize any text inaccuracies. Dictated by: Shaheed Jose M.D. on 10/05/2024 at 10:39 Approved by: Shaheed Jose M.D. on 10/05/2024 at 10:41
== END ==
PROVIDERS: PCP Physician Assistant; Referring Provider Nurse Practitioner Adult Health; Visit Provider Nurse Practitioner Adult Health
DX: N93.8 Other specified abnormal uterine and vaginal bleeding (principal); D25.1 Intramural leiomyoma of uterus; N83.209 Unspecified ovarian cyst, unspecified side
CPT/HCPCS: 76830; 76856

== ENCOUNTER → 2025-07-25 10:24 | Outpatient (CLI) | payer BC, SELFPAY ==
--- NOTE | 2025-07-25 10:24 | DI.MG.S_ITS ---
MM screening mammo BI: 07/25/2025. BI-RADS: 1 CLINICAL: 54-year old female for bilateral screening mammogram. Tyrer-Cuzick lifetime risk of 12.3%. No personal or first-degree family history of breast cancer. Current reported family history of breast cancer: paternal aunt. PRIOR EXAMS 05/22/2024. MAMMOGRAPHY TECHNIQUE: 2D and 3D (tomosynthesis) digital mammographic views obtained, with additional images as needed for full coverage. Current study was also evaluated with a Computer Aided Detection (CAD) system. DENSITY B. There are scattered areas of fibroglandular density. MAMMOGRAPHY FINDINGS Bilateral: No suspicious mass, asymmetry, microcalcification, or other abnormality seen. IMPRESSION: * No evidence of malignancy. RECOMMENDATIONS Bilateral * Annual screening mammography. OVERALL ASSESSMENT CATEGORY BI-RADS-1: Negative. The [employer] recommends annual screening mammography beginning at age 40 for women with average risk of breast cancer. ELECTRONICALLY SIGNED: Isidra Anthony M.D. on 07/27/2025 at 03:11:53 PM PT Interpreting Station ID: [id number]
== END ==
PROVIDERS: PCP Physician Assistant; Referring Provider Physician Assistant; Visit Provider Physician Assistant
DX: Z12.31 Encounter for screening mammogram for malignant neoplasm of breast (principal); Z80.3 Family history of malignant neoplasm of breast
CPT/HCPCS: 77063; 77067